=== PATIENT | male | born 1960 | race Caucasian/White ===

== ENCOUNTER 2017-05-29 23:20 | Emergency (ER) | payer MEDICAID ==
[2017-05-30] MEDS ORDERED: Diphtheria,Pertussis(Acell),Tetanus Vaccine 0.5 ML SDV IM ONE (00:04)
[2017-05-30] MEDS ORDERED: Bacitracin Oint 1 GM U/D Packet TOP ONE (00:05)
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
== END 2017-05-30 00:35 | disposition home or self-care (01) ==
LOC: JP.ED 23:20
DX: S91.115A Laceration without foreign body of left lesser toe(s) without damage to nail, initial encounter (principal); K21.9 Gastro-esophageal reflux disease without esophagitis; M19.90 Unspecified osteoarthritis, unspecified site; Z88.1 Allergy status to other antibiotic agents; Z23 Encounter for immunization; W26.0XXA Contact with knife, initial encounter
CPT/HCPCS: 12001; 12041; 90471; 90715; 99283-25